=== PATIENT | female | born 1945 | race Caucasian/White ===

== ENCOUNTER 2018-01-09 08:17 | Outpatient (CLI) | payer MEDICARE, BC ==
--- NOTE | 2018-01-09 10:23 | ULT ---
ULTRASOUND RENAL BILATERAL STANDARD: Date 01/09/18 HISTORY: Cysts. COMPARISON: MRI abdomen dated 01/07/17. FINDINGS: Corresponding to the MRI findings are bilateral renal cysts. Urinary bladder is unremarkable. Right kidney measures 9.7 x 4.8 x 4.8 cm. Left kidney measures 9.6 x 4.8 x 4.7 cm. Pre-void urinary bladder volume was 85 mL. Post-void volume was 4 mL. IMPRESSION: Bilateral renal cysts, similar to the MRI examination of 01/07/17. POS: BRAVO
== END 2018-01-09 08:18 | disposition home or self-care (01) ==
LOC: ULT 08:17
PROVIDERS: ATTEND Urology
DX: N28.1 Cyst of kidney, acquired (principal)
CPT/HCPCS: 76770

== ENCOUNTER 2018-03-02 11:21 | Outpatient (CLI) | payer MEDICARE, BC ==
--- NOTE | 2018-03-02 13:20 | RAD ---
THREE VIEWS LUMBAR SPINE: History: Spondylolisthesis. Comparison: 11-14-13 FINDINGS: Lateral neutral, lateral flexion, and lateral expansion views of the lumbar spine demonstrate five flakito mbar type vertebral bodies. There is severe degenerative disc disease at T12-L1. There is 2 mm retrol isthesis of T12 upon L1. Neutral position: 7 mm of retrolisthesis of L1 upon L2, 3.6 cm retrolisthesis of L2 upon L3, 6.3 mm a nterolisthesis of L4 upon L5. Flexion: 4.4 mm retrolisthesis of L1 upon L2, listhesis of L2 upon L3 resolved, 4.8 mm anterolisthesi s L4 upon L5. Extension: 4 mm retrolisthesis of L1 upon L2, 2 mm retrolisthesis of L2 upon L3, 4.2 mm anterolisthes is of L4 upon L5. IMPRESSION: Retrolisthesis and translational motion as above. POS: SUKHI
== END 2018-03-02 11:22 | disposition home or self-care (01) ==
LOC: RAD 11:21
PROVIDERS: ATTEND Nurse Practitioner Family
DX: M47.896 Other spondylosis, lumbar region (principal); M51.35 Other intervertebral disc degeneration, thoracolumbar region; M43.15 Spondylolisthesis, thoracolumbar region
CPT/HCPCS: 72100

== ENCOUNTER → 2018-04-17 | Day surgery (SDC) | payer MEDICARE, BC ==
[2018-04-14 15:22] VITALS: BMI 26.3
--- NOTE | 2018-04-16 23:56 | HP ---
HISTORY OF PRESENT ILLNESS: Ms. Khan is a 73-year-old woman presenting for what amounts to a left L3 radiculopathy with MRI from the [facility] revealing left-sided L3 foraminal disk protrusio n that fits well. She has had injections and states while they do help her pain continues to recur a nd hopes to move forward with a surgical method of treatment. PAST MEDICAL HISTORY: Significant for hypertension, asthma, hypothyroidism, heart disease. CURRENT MEDICATIONS: Potassium, furosemide, albuterol, [place] Thyroid, meclizine, benzonatate, hydro chlorothiazide, losartan, clonazepam, meloxicam, propranolol, oxybutynin, omeprazole, and Amitiza. ALLERGIES: No known drug allergies. PHYSICAL EXAMINATION: The patient is alert and oriented x3. Gait is antalgic. Lower extremity arthur r exam is normal. ASSESSMENT: Lumbar radiculopathy. PLAN: Dr. Mina met with the patient, reviewed imaging and advocated for a left-sided L3 facetectomy and diskectomy. He explained to the patient the risks, benefits, alternatives of the procedure. Th e patient expressed understanding and would like to move surgery as discussed.
[~2018-04-17] MED LIST: Bupivacaine HCl 0.5%/Epinephrine 1:200,000/PF 30 ml Vial ONE; Clindamycin/D5W 900 mg/50 ml Premix Bag ONE; Dexamethasone 20 MG/5 ML VIAL ONE; Fentanyl 100 MCG/2 ML VIAL ONE; Glycopyrrolate 0.2 MG/ML 5 ML SYRINGE ONE; Levofloxacin 500 mg/D5W 100 ml Premix Bag ONE; Lidocaine 1% PF 5 ML VIAL ONE; Ondansetron HCl/PF 4 MG/2 ML Vial ONE; PROPOFOL 200 MG/20 ML VIAL ONE; Thrombin 5000 UNITS/5 ML VIAL ONE; ePHEDrine/0.9% NaCl/PF SYRINGE 50 mg/10 ml ONE
[2018-04-17 07:37] LABS: Anion Gap 10 mmol/L (10-20); BUN (Urea Nitrogen) 43 mg/dL (9.8-20.1); Calc. Creatinine Clearance 38 mL/min (70-130); Calcium 9.8 mg/dL (7.8-10.44); Carbon Dioxide 32 mmol/L (23-31); Chloride 102 mmol/L (98-107); Estimated GFR-MDRD 32; Glucose 103 mg/dL (83-110); Potassium 3.3 mmol/L (3.5-5.1); Sodium 141 mmol/L (136-145)
--- NOTE | 2018-04-17 19:51 | EKG ---
Test Reason : PREOP Blood Pressure : / mmHG Vent. Rate : 051 BPM Atrial Rate : 051 BPM P-R Int : 208 ms QRS Dur : 092 ms QT Int : 500 ms P-R-T Axes : 075 007 064 degrees QTc Int : 460 ms Sinus bradycardia Left ventricular hypertrophy with repolarization abnormality Abnormal ECG When compared with ECG of 28-NOV-2013 19:14, T wave inversion no longer evident in Lateral leads Confirmed by DR. Chetan BO ([id number]) on 04/17/2018 7:51:22 PM Referred By: Erwin LÓPEZ Confirmed By:DR. Chetan BO
--- NOTE | 2018-04-18 12:56 | OP ---
DATE OF PROCEDURE: 04/17/2018 SURGEON: Chente Mina M.D. BELT TENDER: Gilberto Mercado PA-C. INDICATION: Pain. DIAGNOSIS: Lumbar radiculopathy. PROCEDURES: Left L3 facetectomy and discectomy. ANESTHESIA: General. TECHNIQUE: The patient was brought into the operating room and placed under general anesthesia. She was flipped from a supine to a prone position on the operating room table. A linear incision was pl anned over L3. After prepping and draping and after an appropriate operative pause, the incision was created. The soft tissues were swept left of midline. Self-retaining retractors placed in the woun d for optimal exposure. After confirming the appropriate level with C-arm fluoroscopy, a high-speed cutting drill bit as well as 2, 3 and 4-mm Kerrison was used to perform a laminectomy along the infer ior aspect of L3 on the left. Laminectomy was extended to encompass the medial one-half to two-third s of the facet joint. The exiting L3 nerve root was identified as well as disk material and ligament which were carefully removed in order to decompress the exiting nerve root. The wound was irrigated . Hemostasis was maintained throughout. The wound was then closed in anatomic layers and a pressure dressing was applied. There were no known procedural complications.
== END ==
LOC: SDC 06:24
PROVIDERS: ATTEND Neurological Surgery
PROC: 01NB0ZZ Release Lumbar Nerve, Open Approach (ICD-10-PCS; principal; 2018-04-17)
DX: M51.16 Intervertebral disc disorders with radiculopathy, lumbar region (principal); I10 Essential (primary) hypertension; J45.909 Unspecified asthma, uncomplicated; E03.9 Hypothyroidism, unspecified; Z79.899 Other long term (current) drug therapy; Z88.0 Allergy status to penicillin; Z91.018 Allergy to other foods; Z91.040 Latex allergy status
CPT/HCPCS: 36415; 76001; 80048; 93005; 93010; J0670; J1100; J1956; J2001; J2405; J2704; J3010; J3490

== ENCOUNTER 2018-09-14 13:08 | Outpatient (CLI) | payer MEDICARE, BC | END 2018-09-14 13:09 | disposition home or self-care (01) | LOC: BICMAMMO 13:08 | PROVIDERS: ATTEND Family Medicine | DX: Z12.31 Encounter for screening mammogram for malignant neoplasm of breast (principal) | CPT/HCPCS: 77063; 77067 ==

== ENCOUNTER 2018-11-01 16:52 | Emergency (ER) | payer MEDICARE, BC ==
[2018-11-01] MEDS ORDERED: predniSONE 20 MG TAB ONE (17:24)
== END 2018-11-01 17:28 | disposition home or self-care (01) ==
LOC: SCSER 16:52
DX: M54.12 Radiculopathy, cervical region (principal); E03.9 Hypothyroidism, unspecified; I10 Essential (primary) hypertension; Z79.899 Other long term (current) drug therapy
CPT/HCPCS: 99283; J7506

== ENCOUNTER 2018-11-27 13:22 | Outpatient (CLI) | payer MEDICARE, BC ==
--- NOTE | 2018-11-27 17:22 | MRI ---
MRI LUMBAR SPINE WITHOUT CONTRAST ENHANCEMENT: HISTORY: History of previous back surgery. Has chronic low back pain, radiating down right leg and hip. The patient refused any contrast for this examination. COMPARISON: MRI study from 02/21/2018. FINDINGS: The vertebral bodies are normal in height. There are disk desiccation changes along the course of th e spine. Minimal disk narrowing is seen at L1-L2 and at L4-L5. Spondylolisthesis of L4 on L5 of michael roximately 5 mm. No significant periaortic adenopathy. A large cyst is again identified within the left kidney. L1-L2: Disk bulge, facet, and ligamentous hypertrophic changes are seen at this level, with a mild t o moderate degree of canal stenosis and some borderline bilateral foraminal narrowing. L2-L3: Borderline canal narrowing is seen at this level with degenerative facet and ligamentous hype rtrophic changes. No foraminal narrowing. L3-L4: The canal shows a mild degree of stenosis with degenerative facet and ligamentous hypertrophi c changes. No significant foraminal narrowing is present. L4-L5: Moderately severe canal stenosis with degenerative facet and ligamentous hypertrophic changes and spondylolisthesis. This also contributes to some mild bilateral foraminal narrowing. L5-S1: Degenerative facet changes are seen at this level without significant canal or foraminal narr owing. IMPRESSION: Areas of canal and foraminal stenosis, as discussed above. POS: BRAVO
--- NOTE | 2018-11-27 18:08 | MRI ---
MRI CERVICAL SPINE WITHOUT CONTRAST: HISTORY: No history of surgery. No known injury. The patient states neck pain radiating down both shoulders. Left hand numbness since today. FINDINGS: There is a slight reversal to the normal cervical curve. The vertebral bodies maintain normal height . There is disk narrowing, which is most pronounced at C5-C6 and C6-C7, as well as the C7-T1 level. There is anterolisthesis of C4 on C5, of approximately 4 mm. Also, minimal anterolisthesis of appro ximately 3 to 4 mm of C3 on C4 and C7 on T1. There is also some type of deformity or osteophytic change, which is in the region of the articulatio n of the left lateral mass of C1 with C2. This is only seen on the sagittal imaging, as axial images do not go to this level. I am not certain what this density represents. I would recommend CT as th e initial first evaluation. C2-C3: Posterior osteophytic bar is seen. There is some mild right and moderately severe left mariano inal narrowing. C3-C4: Posterior osteophytic change is also present at this level, again with a mild degree of canal stenosis. Bilateral foraminal narrowing, which is moderately severe on the left. C4-C5: Broad-based posterior osteophytic bar is associated with a moderate degree of canal narrowing . There are disk and osteophyte changes seen. There is moderate bilateral foraminal stenosis. C5-C6: Posterior osteophytic bar and disk bulge is seen, again with a mild degree of canal stenosis. Bilateral foraminal narrowing, worse on the left. C6-C7: C7-T1: There is a left lateral disk-osteophyte complex at this level. Uncovertebral changes contrib [place] to mild bilateral foraminal narrowing, and the canal shows a mild to moderate degree of stenosis. IMPRESSION: Multilevel canal and foraminal stenosis. Unusual appearance, along the left side, The C1-C2 articul ation is incompletely assessed on this examination. Further evaluation with CT would be the recommen dation for initial evaluation. POS: BRAVO
== END 2018-11-27 13:23 | disposition home or self-care (01) ==
LOC: SCSMRI 13:22
PROVIDERS: ATTEND Neurological Surgery
DX: M54.12 Radiculopathy, cervical region (principal); M54.5 Low back pain; M48.061 Spinal stenosis, lumbar region without neurogenic claudication; M48.02 Spinal stenosis, cervical region
CPT/HCPCS: 72141; 72148

== ENCOUNTER 2018-12-06 00:35 | Outpatient (CLI) | payer MEDICARE, BC ==
[2018-12-06 16:14] LABS: Anion Gap 10 mmol/L (10-20); BUN (Urea Nitrogen) 37 mg/dL (9.8-20.1); Calc. Creatinine Clearance 0 mL/min (70-130); Calcium 10.4 mg/dL (7.8-10.44); Carbon Dioxide 32 mmol/L (23-31); Chloride 100 mmol/L (98-107); Estimated GFR-MDRD 36; Glucose 106 mg/dL (83-110); Potassium 3.3 mmol/L (3.5-5.1); Sodium 139 mmol/L (136-145)
--- NOTE | 2018-12-07 07:52 | EKG ---
Test Reason : Blood Pressure : / mmHG Vent. Rate : 055 BPM Atrial Rate : 055 BPM P-R Int : 232 ms QRS Dur : 094 ms QT Int : 482 ms P-R-T Axes : 070 027 064 degrees QTc Int : 461 ms Sinus bradycardia with 1st degree A-V block Nonspecific ST and T wave abnormality Abnormal ECG When compared with ECG of 17-APR-2018 07:56, No significant change was found Confirmed by ELA TURNER ([id number]) on 12/07/2018 7:52:37 AM Referred By: RENE Confirmed By:ELA TURNER
== END 2018-12-06 00:36 | disposition home or self-care (01) ==
LOC: LABBT 00:35
PROVIDERS: ATTEND Neurological Surgery
DX: Z01.818 Encounter for other preprocedural examination (principal); M43.16 Spondylolisthesis, lumbar region; M54.5 Low back pain
CPT/HCPCS: 80048; 93005; 93010

== ENCOUNTER 2018-12-13 07:57 | Day surgery (SDC) | payer MEDICARE, BC ==
[2018-12-06 14:55] VITALS: BMI 24.7
--- NOTE | 2018-12-12 11:06 | HP ---
HISTORY: Ms. Khan is a 73-year-old woman, known to us for previous lumbar decompression, who presents today with continued and progressive lower back pain with at times bilateral leg pain. She also feels like her legs have been getting weaker as well, particularly in the right lower extremity. Moreover, her pain is also most severe. She has a new MRI that reveals spondylolisthesis at L4-L5, that has been present for some time, but appears to have progressed in terms of severity. She has treated this with injections and therapy and would like to move forward with surgery if possible. PAST MEDICAL HISTORY: Hypertension, asthma, hypothyroidism, and heart disease. MEDICATIONS: 1. Potassium. 2. Furosemide. 3. Albuterol. 4. Meclizine. 5. Benzonatate. 6. Hydrochlorothiazide. 7. Losartan. 8. Clonazepam. 9. Meloxicam. 10. Propranolol. 11. Oxybutynin. 12. Omeprazole. 13. Amitiza. ALLERGIES: NO KNOWN DRUG ALLERGIES. PHYSICAL EXAMINATION: The patient is alert and oriented x3. Gait is antalgic. Lower extremity motor exam is normal. ASSESSMENT: Lumbar spondylolisthesis, back pain, and radiculopathy. PLAN: Dr. Mina met with the patient, reviewed imaging, advocated for an L4-L5 facetectomy and fusion. He explained to the patient the risks, benefits, and alternatives to the procedure. The patient expressed understanding and elected to move forward with surgery as discussed. I do believe the patient is mentally competent and capable of making medical decisions for herself. We will move forward with surgery as planned. Job ID: [id number]
[2018-12-13] MEDS ORDERED: Levofloxacin 500 mg/D5W 100 ml Premix Bag ONE (08:34)
[2018-12-13] MEDS ORDERED: Clindamycin/D5W 900 mg/50 ml Premix Bag ONE (08:34)
[2018-12-13] MEDS ORDERED: Bupivacaine HCl 0.5%/Epinephrine 1:200,000/PF 30 ml Vial ONE (09:00)
[2018-12-13] MEDS ORDERED: Thrombin 5000 UNITS/5 ML VIAL ONE (09:00)
[2018-12-13] MEDS ORDERED: Fentanyl 100 MCG/2 ML VIAL ONE ×4 (09:10→12:07)
[2018-12-13] MEDS ORDERED: Morphine 4 MG/ML VIAL ONE (11:48)
[2018-12-13] MEDS ORDERED: Morphine 2 MG/ML SYRINGE ONE (12:04)
[2018-12-13] MEDS ORDERED: Dexamethasone 20 MG/5 ML VIAL ONE (13:43)
[2018-12-13] MEDS ORDERED: Lidocaine 1% PF 5 ML VIAL ONE (13:43)
[2018-12-13] MEDS ORDERED: PROPOFOL 200 MG/20 ML VIAL ONE (13:43)
[2018-12-13] MEDS ORDERED: Ondansetron PF 4 MG/2 ML Vial ONE (13:43)
[2018-12-13] MEDS ORDERED: ePHEDrine 50 MG/ML VIAL ONE (13:43)
[2018-12-13] MEDS ORDERED: Glycopyrrolate 0.2 MG/ML 5 ML SYRINGE ONE (13:43)
[2018-12-13] MEDS ORDERED: Succinylcholine Chloride 20 MG/ML 10 ml SYRINGE FS ONE (13:43)
[2018-12-13] MEDS ORDERED: Rocuronium Bromide 10 MG/ML (10ML VIAL) ONE (13:43)
[2018-12-13] MEDS ORDERED: Promethazine HCl 25 MG/ML VIAL ONE (14:31)
--- NOTE | 2018-12-13 17:56 | OP ---
DATE OF PROCEDURE: 12/13/2018 HOSPITAL SALES REPRESENTATIVE: Gilberto Mercado PA-C INDICATION: Pain. DIAGNOSES: Lumbar spondylolisthesis at L4 and L5 with back pain and lumbar radiculopathy. PROCEDURES PERFORMED: L4-L5 decompression, facetectomies, posterior lateral instrumented fusion, placement of allograft, and placement of autograft. ANESTHESIA: General. DESCRIPTION OF PROCEDURE: The patient was brought into the operating room and placed under general anesthesia. She was flipped from the supine to prone position on the operating room table. A linear incision was planned over the L4-L5 segment. After prepping and draping and after a preoperative pause, the incision was created. The soft tissues were swept away from midline. Self-retaining retractors were placed in the wound for optimal exposure. After confirming the appropriate level with C-arm fluoroscopy, high-speed cutting drill bit as well as 2, 3, and 4 mm Kerrisons were used to perform facetectomies bilaterally at the L4-L5 segment. The pedicles were identified at L4 and L5 bilaterally. Pedicle screws were placed within the pedicles bilaterally. An intraoperative 3D CT scan was performed to confirm appropriate placement of hardware. Rods were then placed across the screw head and final tightened. Allograft and autograft material were then placed in the lateral confines of the instrumentation construct. The wound was irrigated. Hemostasis was maintained throughout. The wound was then closed in anatomic layers and a pressure dressing was applied. There were no known procedural complications. Job ID: [id number]
== END 2018-12-13 15:25 | disposition home or self-care (01) ==
LOC: SDC 07:57
PROVIDERS: ATTEND Neurological Surgery
PROC: 0SG0071 Fusion of Lumbar Vertebral Joint with Autologous Tissue Substitute, Posterior Approach, Posterior Column, Open Approach (ICD-10-PCS; principal; 2018-12-13)
DX: M43.16 Spondylolisthesis, lumbar region (principal); M54.16 Radiculopathy, lumbar region; M54.12 Radiculopathy, cervical region; I11.9 Hypertensive heart disease without heart failure; J45.909 Unspecified asthma, uncomplicated; E03.9 Hypothyroidism, unspecified; K21.9 Gastro-esophageal reflux disease without esophagitis; M17.0 Bilateral primary osteoarthritis of knee; K58.9 Irritable bowel syndrome, unspecified; K31.84 Gastroparesis; Z79.899 Other long term (current) drug therapy; Z88.0 Allergy status to penicillin; Z91.018 Allergy to other foods; Z91.040 Latex allergy status; Z91.041 Radiographic dye allergy status; Z98.890 Other specified postprocedural states
CPT/HCPCS: 76000; C1713; J0670; J1100; J1956; J2001; J2270; J2405; J2550; J2704; J3010; J3490

== ENCOUNTER 2019-04-23 07:24 | Outpatient (CLI) | payer MEDICARE, BC ==
--- NOTE | 2019-04-23 13:25 | NM ---
NUCLEAR MEDICINE PARATHYROID SCAN: Date: 04/23/19 HISTORY: Hyperparathyroidism, unspecified. COMPARISON: None. TECHNIQUE: Patient was administered 27 mCi of technetium-99m sestamibi intravenously. Immediate, 1 hour, and 2 h our images were performed. SPECT images on the 1 hour images were performed. FINDINGS: SPECT and planar images demonstrate appropriate uptake of the radiotracer. There is no evidence of ra diotracer retention to suggest a parathyroid adenoma. IMPRESSION: No scintigraphic evidence of a parathyroid adenoma. A parathyroid adenoma soft tissue neck CT can be performed if warranted. POS: BRAVO
== END 2019-04-23 07:25 | disposition home or self-care (01) ==
LOC: NM 07:24
PROVIDERS: ATTEND Specialist
DX: E21.3 Hyperparathyroidism, unspecified (principal)
CPT/HCPCS: 78072; A9500

== ENCOUNTER 2019-05-31 13:20 | Outpatient (CLI) | payer MEDICARE, BC ==
--- NOTE | 2019-05-31 14:03 | CT ---
Exam: Noncontrast soft tissue neck CT HISTORY: Hyperparathyroidism. COMPARISON: None FINDINGS: Visualized brain parenchyma is unremarkable Minimal mucosal disease of the right maxillary sinus Aerodigestive tract is patent. No mucosal abnormality. Limited evaluation of the oral cavity due to d ental amalgam artifact. Midline fatty raphae of the tongue is preserved. Epiglottis is normal caliber. Preepiglottic fat is preserved Fatty replacement of bilateral parotid glands Symmetric attenuation of the submandibular glands Symmetric attenuation sternocleidomastoid muscles. No evidence of lymphadenopathy by size criteria Straightening of normal cervical lordosis. Anterior osteophyte formation is noted. Varying degrees of central canal stenosis and neural foraminal narrowing on the basis of degenerative change. Multilevel facet hypertrophy is identified Upper mediastinum and lung apices are unremarkable There is a calcification in the left thyroid lobe 0.5 cm. Note, intrinsically the thyroid gland is no t very hyperdense. There is a well-circumscribed hypodensity in the right tracheoesophageal groove measuring 0.8 x 0.5 cm (series 2, image 93; series 4, image 57; series 5, image 40). This may represe nt a parathyroid adenoma. Given that the patient has a contrast allergy, repeat imaging with premedication is recommended. IMPRESSION: Soft tissue density in the right tracheoesophageal groove as described above. This may be a parathyro id adenoma or possibly a lymph node. Definitive workup with a triple phase CT is recommended. Patient can be premedicated for the contrast allergy.
== END 2019-05-31 13:21 | disposition home or self-care (01) ==
LOC: BICCT 13:20
PROVIDERS: ATTEND Specialist
DX: E21.3 Hyperparathyroidism, unspecified (principal); R93.89 Abnormal findings on diagnostic imaging of other specified body structures
CPT/HCPCS: 70490

== ENCOUNTER 2019-06-14 10:27 | Day surgery (SDC) | payer MEDICARE, BC ==
[2019-06-13 11:21] VITALS: BMI 23.3
[2019-06-14 12:11] LABS: Hemoglobin 11.5 g/dL (12.0-16.0)
[2019-06-14] MEDS ORDERED: ePHEDrine 50 MG/ML VIAL ONE (12:16)
[2019-06-14] MEDS ORDERED: Glycopyrrolate 0.2 MG/ML 5 ML SYRINGE ONE (12:16)
[2019-06-14] MEDS ORDERED: Ondansetron PF 4 MG/2 ML Vial ONE (12:16)
[2019-06-14] MEDS ORDERED: PROPOFOL 200 MG/20 ML VIAL ONE (12:16)
[2019-06-14] MEDS ORDERED: Dexamethasone 20 MG/5 ML VIAL ONE (12:16)
[2019-06-14] MEDS ORDERED: Succinylcholine Chloride 20 MG/ML 10 ml SYRINGE FS ONE (12:16)
[2019-06-14] MEDS ORDERED: Lidocaine 1% PF 5 ML VIAL ONE (12:16)
[2019-06-14 12:31] LABS: Anion Gap 11 mmol/L (10-20); BUN (Urea Nitrogen) 56 mg/dL (9.8-20.1); Calc. Creatinine Clearance 33 mL/min (70-130); Calcium 10.2 mg/dL (7.8-10.44); Carbon Dioxide 33 mmol/L (23-31); Chloride 101 mmol/L (98-107); Estimated GFR-MDRD 33; Glucose 79 mg/dL (83-110); Potassium 3.9 mmol/L (3.5-5.1); Sodium 141 mmol/L (136-145)
[2019-06-14] MEDS ORDERED: Fentanyl 100 MCG/2 ML VIAL ONE (13:01)
[2019-06-14] MEDS ORDERED: Lidocaine 1% w/Epinephrine 1:100K 20 ML VIAL ONE (13:02)
[2019-06-14] MEDS ORDERED: Lidocaine 2% Jelly 5 ML TUBE ONE (13:02)
--- NOTE | 2019-06-15 08:23 | OP ---
DATE OF PROCEDURE: 06/14/2019 PREOPERATIVE DIAGNOSIS: Hyperparathyroidism. POSTOPERATIVE DIAGNOSIS: Hyperparathyroidism. PROCEDURE PERFORMED: 1. Right inferior parathyroidectomy. 2. Right neck dissection and laryngeal nerve monitoring for 1 hour. PROCEDURE: After consent was obtained, the patient was identified, brought to the operating room, and placed on the operating table in supine position. General endotracheal anesthesia was obtained with a laryngeal nerve monitoring endotracheal tube and was documented endoscopically to be in position. The neck was prepped and draped and a natural skin crease identified inferiorly. The skin incision was made through the skin, subcutaneous tissues, and platysma. Subplatysmal flaps were elevated inferiorly and superiorly. We then the strap muscles down the capsule and dissected the right strap muscles from the capsule of thyroid mass. We then rotated the thyroid gland medially and this and retracted the strap muscles laterally. We then after dissection at that area was able the find 2 consistent with parathyroid gland. 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 The other one appeared to be a normal size. We then turned our attention to closing the wound and hemostasis was obtained and the strap muscles were reapproximated as was the platysma with Monocryl and the skin was closed with a running 6-0 Prolene. The patient was then awakened and taken to the recovery room where she remained in stable condition prior to discharge. Job ID: [id number]
== END 2019-06-14 17:55 | disposition home or self-care (01) ==
LOC: SDC 10:27
PROVIDERS: ATTEND Specialist
PROC: 0GBN0ZZ Excision of Right Inferior Parathyroid Gland, Open Approach (ICD-10-PCS; principal; 2019-06-14)
DX: E21.3 Hyperparathyroidism, unspecified (principal); G43.909 Migraine, unspecified, not intractable, without status migrainosus; K21.9 Gastro-esophageal reflux disease without esophagitis; I10 Essential (primary) hypertension; M17.0 Bilateral primary osteoarthritis of knee; E03.9 Hypothyroidism, unspecified; K31.84 Gastroparesis; K58.9 Irritable bowel syndrome, unspecified; Z79.899 Other long term (current) drug therapy; Z88.0 Allergy status to penicillin; Z88.1 Allergy status to other antibiotic agents; Z88.2 Allergy status to sulfonamides; Z88.8 Allergy status to other drugs, medicaments and biological substances; Z91.018 Allergy to other foods; Z91.040 Latex allergy status; Z91.041 Radiographic dye allergy status; Z98.1 Arthrodesis status
CPT/HCPCS: 36415; 80048; 85014; 85018; 88305; 88331; 93005; 93010; J2001; J3010

== ENCOUNTER 2020-10-29 14:18 | Outpatient (CLI) | payer MEDICARE, BC ==
--- NOTE | 2020-10-29 15:38 | MMO ---
Bilateral MAMMO Bilat Screen [facility]. CLINICAL HISTORY: Patient is 75 years old and is seen for screening. The patient has no family history of breast cancer. The patient has no personal history of cancer. VIEWS: The views performed were: bilateral craniocaudal with tomosynthesis and bilateral mediolateral oblique with tomosynthesis. FILMS COMPARED: The present examination has been compared to prior imaging studies performed at [facility] on 08/16/2005, 09/05/2007, 07/13/2013 and 09/14/2018. This study has been interpreted with the assistance of computer-aided detection. MAMMOGRAM FINDINGS: The breasts are extremely dense, which may lower the sensitivity of mammography. Benign calcifications are noted bilaterally. There are no suspicious masses, suspicious calcifications, or new areas of architectural distortion. IMPRESSION: THERE IS NO MAMMOGRAPHIC EVIDENCE OF MALIGNANCY. A ROUTINE FOLLOW-UP MAMMOGRAM IN 1 YEAR IS RECOMMENDED. THE RESULTS OF THIS EXAM WERE SENT TO THE PATIENT. ACR BI-RADS Category 2 - Benign finding MAMMOGRAPHY NOTE: 1. A negative mammogram report should not delay a biopsy if a dominant of clinically suspicious mass is present. 2. Approximately 10% to 15% of breast cancers are not detected by mammography. 3. Adenosis and dense breasts may obscure an underlying neoplasm. Reported by: CORNELL JAIMES MD Electonically Signed: [id number]
== END 2020-10-29 14:19 | disposition home or self-care (01) ==
LOC: BICMAMMO 14:18
PROVIDERS: ATTEND Family Medicine
DX: Z12.31 Encounter for screening mammogram for malignant neoplasm of breast (principal)
CPT/HCPCS: 77063; 77067

== ENCOUNTER 2021-11-26 12:29 | Outpatient (CLI) | payer MEDICARE, BC | END 2021-11-26 12:30 | disposition home or self-care (01) | LOC: TBSIIMAG 12:29 | PROVIDERS: ATTEND Neurological Surgery | DX: M47.22 Other spondylosis with radiculopathy, cervical region (principal) | CPT/HCPCS: 72141 ==

== ENCOUNTER 2022-04-01 12:14 | Outpatient (CLI) | payer MEDICARE, BC | END 2022-04-01 12:15 | disposition home or self-care (01) | LOC: TBSIIMAG 12:14 | PROVIDERS: ATTEND Neurological Surgery | DX: M25.511 Pain in right shoulder (principal); M79.601 Pain in right arm; S43.001A Unspecified subluxation of right shoulder joint, initial encounter; M19.011 Primary osteoarthritis, right shoulder ==

== ENCOUNTER 2023-06-01 13:38 | Outpatient (CLI) | payer MEDICARE, BC | END 2023-06-01 13:39 | disposition home or self-care (01) | LOC: RAD 13:38 | PROVIDERS: ATTEND Nurse Practitioner Family | DX: R05.3 Chronic cough (principal) | CPT/HCPCS: 71046 ==

== ENCOUNTER 2024-02-22 12:48 | Outpatient (CLI) | payer MEDICARE | END 2024-02-22 12:49 | disposition home or self-care (01) | LOC: BICRAD 12:48 | PROVIDERS: ATTEND Nurse Practitioner Family | DX: R06.02 Shortness of breath (principal) | CPT/HCPCS: 36415; 71046; 80053; 83880; 85025 ==